=== PATIENT | male | born 1965 | race Caucasian/White ===

== ENCOUNTER 2017-08-28 16:25 | Inpatient (IN) | payer OTHER ==
[~2017-08-28] VITALS: Ht 180.3 cm; Wt 84.1 kg
[~2017-08-28 16:25] MED LIST: NOHOMEMEDS; ZYRTEC10 M3 PO
[2017-08-28 17:27] LABS: HEMATOCRIT 29.1 % (38.0-50.0); HEMOGLOBIN 9.8 G/DL (12.5-16.6); MCH 30.2 PG (29.0-34.0); MCHC 33.7 G/DL (30.0-36.0); MCV 89.8 FL (86-99); PLATELET COUNT 326 K/uL (156-360); RBC DIS.WIDTH-CV 13.3 % (11.8-14.6); RED BLOOD COUNT 3.24 M/uL (4.00-5.50); WHITE BLOOD COUNT 23.7 K/uL (4.1-10.2)
[2017-08-28 17:39] LABS: CHLORIDE 97 mEq/L (99-109); POTASSIUM 3.9 mEq/L (3.7-5.4); SODIUM 131 mEq/L (136-147)
[2017-08-28 17:40] LABS: GLUCOSE 103 mg/dL (70-99)
[2017-08-28 17:44] LABS: GFR ESTIMATE (CALCULATED) > 59 mL/min/ (58.99-99999)
[2017-08-28 17:45] LABS: UREA NITROGEN (BUN) 15 mg/dL (9-23)
[2017-08-28 17:55] LABS: APPEARANCE SL.HAZY ((CLEAR)); BILIRUBIN NEGATIVE; BLOOD MODERATE; COLOR YELLOW ((YELLOW)); GLUCOSE (STRIP) NEGATIVE; KETONES NEGATIVE; LEUKOCYTES MODERATE; NITRITE NEGATIVE; PROTEIN (STRIP) NEGATIVE; SPECIFIC GRAVITY 1.008 (1.000-1.030); UROBILINOGEN 0.2 MG/DL (0.2-1.0)
[2017-08-28 18:01] LABS: BACTERIA RARE /HPF; EPITHELIAL CELLS RARE /HPF; MUCUS NONE SEEN /LPF; UCUL ADDED? YES; WHITE BLOOD CELLS 20-30 /HPF (0-5)
[2017-08-28 18:07] LABS: ERTH.SED.RATE 52 MM/HR (0-20)
[2017-08-28 18:21] LABS: C-REACTIVE PROTEIN 134.7 MG/L (0-10)
[2017-08-28] MEDS ORDERED: TYLENOL EXTRA500 MG PO (21:09)
[2017-08-28] MEDS ORDERED: STOOL SOFTENER100 M1 PO (21:09)
[2017-08-28] MEDS ORDERED: OXYCODONE HCL5 MG PO (21:10)
[2017-08-28] MEDS ORDERED: CYCLOBENZAPRINE10 MG PO (21:11)
[2017-08-28] MEDS ORDERED: GABAPENTIN300 MG PO (21:14)
[2017-08-28] MEDS ORDERED: PANTOPRAZOLE SO40 MG PO (21:15)
[2017-08-28] MEDS ORDERED: TAMSULOSIN HCL0.4 MG PO (21:17)
[2017-08-29] VITALS (7 sets, daily range): BP systolic 106–124; BP diastolic 57–72
[2017-08-29 05:18] LABS: BASOPHIL (%) 0.1 % (0-1); EOSINOPHIL (%) 0.5 % (0-5); EOSINOPHIL COUNT 0.1 K/uL (0-0.3); HEMATOCRIT 25.6 % (38.0-50.0); HEMOGLOBIN 8.4 G/DL (12.5-16.6); IMMATURE GRANULOCYTE (%) 1.1 % (0.0-0.7); LYMPHOCYTE (%) 6.5 % (15-42); LYMPHOCYTE COUNT 1.1 K/uL (1.0-2.8); MCH 29.8 PG (29.0-34.0); MCHC 32.8 G/DL (30.0-36.0); MCV 90.8 FL (86-99); MONOCYTE (%) 8.3 % (3-12); MONOCYTE COUNT 1.4 K/uL (0-0.8); NEUTROPHIL (%) 83.5 % (45-76); NEUTROPHIL COUNT 14.2 K/uL (1.8-6.4); PLATELET COUNT 287 K/uL (156-360); RBC DIS.WIDTH-CV 13.2 % (11.8-14.6); RBC DIS.WIDTH-SD 43.1 % (39-53); RED BLOOD COUNT 2.82 M/uL (4.00-5.50)
[2017-08-29 05:28] LABS: CHLORIDE 107 MEQ/L (99-109); CREATININE 0.9 MG/DL (0.6-1.3); GFR ESTIMATE (CALCULATED) > 59 mL/min/ (58.99-99999); GLUCOSE 102 mg/dL (70-99); POTASSIUM 3.8 MEQ/L (3.7-5.4); SODIUM 138 MEQ/L (136-147); UREA NITROGEN (BUN) 10 mg/dL (9-23)
[2017-08-30 03:41] VITALS: BP 111/66
[2017-08-30 05:08] LABS: BASOPHIL (%) 0.1 % (0-1); EOSINOPHIL (%) 1.3 % (0-5); EOSINOPHIL COUNT 0.1 K/uL (0-0.3); HEMATOCRIT 24.8 % (38.0-50.0); HEMOGLOBIN 8.2 G/DL (12.5-16.6); LYMPHOCYTE (%) 8.7 % (15-42); LYMPHOCYTE COUNT 0.9 K/uL (1.0-2.8); MCH 29.9 PG (29.0-34.0); MCHC 33.1 G/DL (30.0-36.0); MCV 90.5 FL (86-99); MONOCYTE (%) 8.8 % (3-12); MONOCYTE COUNT 0.9 K/uL (0-0.8); NEUTROPHIL (%) 80.1 % (45-76); NEUTROPHIL COUNT 8.2 K/uL (1.8-6.4); PLATELET COUNT 319 K/uL (156-360); RBC DIS.WIDTH-CV 13.4 % (11.8-14.6); RBC DIS.WIDTH-SD 44.4 % (39-53); RED BLOOD COUNT 2.74 M/uL (4.00-5.50); WHITE BLOOD COUNT 10.2 K/uL (4.1-10.2)
[2017-08-30 05:30] LABS: CHLORIDE 107 MEQ/L (99-109); CREATININE 0.9 MG/DL (0.6-1.3); GFR ESTIMATE (CALCULATED) > 59 mL/min/ (58.99-99999); GLUCOSE 104 mg/dL (70-99); POTASSIUM 3.7 MEQ/L (3.7-5.4); SODIUM 140 MEQ/L (136-147); UREA NITROGEN (BUN) 11 mg/dL (9-23)
[2017-08-30 08:00] VITALS: BP 118/70
[2017-08-30 11:00] VITALS: BP 112/78
[2017-08-30] MEDS ORDERED: AMOXICILLIN500 M1 PO (12:39)
[2017-08-30] MEDS ORDERED: CIPRO500 MG PO (12:39)
[2017-08-30] MEDS ORDERED: OXYCODONE HCL5 MG PO (13:42)
[2017-08-30] MEDS ORDERED: CYCLOBENZAPRINE10 MG PO (13:42)
[2017-08-30] MEDS ORDERED: GABAPENTIN300 MG PO (13:42)
== END 2017-08-30 15:26 | disposition home or self-care (01) | DRG 698 ==
LOC: EME 16:25 → 3EAST 21:19 → EDOF 21:19 → ENRESERV 21:20 → 3EAST 08-29 00:30
PROVIDERS: Emergency Medicine; Hospitalist; Physician Assistant
DX: T83.511A Infection and inflammatory reaction due to indwelling urethral catheter, initial encounter (principal); Y84.6 Urinary catheterization as the cause of abnormal reaction of the patient, or of later complication, without mention of misadventure at the time of the procedure; A41.9 Sepsis, unspecified organism; R65.20 Severe sepsis without septic shock; N10 Acute pyelonephritis; J18.9 Pneumonia, unspecified organism; Y95 Nosocomial condition; B96.5 Pseudomonas (aeruginosa) (mallei) (pseudomallei) as the cause of diseases classified elsewhere; B95.2 Enterococcus as the cause of diseases classified elsewhere; S34.109S Unspecified injury to unspecified level of lumbar spinal cord, sequela; R33.8 Other retention of urine; R15.9 Full incontinence of feces; N39.498 Other specified urinary incontinence; Z98.1 Arthrodesis status
CPT/HCPCS: 71046; 72158; 80048; 81003; 83605; 85025; 85027; 85652; 86140; 87040; 87077; 87086; 87186; 99281; 99285; J0696; J1650; J2270; J2543; J3370; J7030; J7040; J7050; J7120